=== PATIENT | male | born 1960 | race Caucasian/White ===

== ENCOUNTER 2018-01-09 20:55 | Emergency (ER) | payer OTHER ==
[~2018-01-09] VITALS: Ht 177.8 cm; Wt 113.4 kg
[~2018-01-09 20:55] MED LIST: CYCLOBENZAPRINE5 MG PO; HYDROCODONE-AP1 EAC6 PO; LISINOPRIL20 MG PO; POLYMYXIN B/TMP10 ML OP; PRILOSEC 10MG C10 MG PO
[2018-01-09] MEDS ORDERED: ALEVE220 MG PO (21:04)
[2018-01-09 21:46] LABS: ABSOLUTE EOSINOPHILS 0.1 thou/uL (0.0-0.7); ABSOLUTE MONOCYTES 0.8 thou/uL (0.0-1.2); ABSOLUTE NEUTROPHILS 5.8 thou/uL (1.6-8.1); BASOPHILS 0.5 %; EOSINOPHILS 1.5 %; HEMATOCRIT 44.3 % (42.0-52.0); MCH 30.1 pg (26.0-34.0); MCHC 33.8 g/dL (28.0-37.0); MONOCYTES 9.1 %; MPV 7.6 fl. (7.2-11.1); NUCLEATED RBCS 0 /100WBC; PLATELET COUNT* 267 thou/uL (150-400); POLYS 65.9 %; RBC 4.98 mil/uL (4.50-6.00); RDW-CV 14.1 % (10.5-14.5); WBC 8.7 thou/uL (4.0-11.0)
[2018-01-09 21:49] LABS: CREATININE 1.5 mg/dL (0.6-1.3)
[2018-01-09 21:54] LABS: ALBUMIN 3.9 g/dL (3.4-5.0); TOTAL BILIRUBIN 0.5 mg/dL (<0.1-1.0); TOTAL PROTEIN 7.1 g/dL (6.4-8.2)
[2018-01-09 22:06] LABS: URINE BILIRUBIN NEGATIVE (Negative); URINE BLOOD 2+ (Negative); URINE CLARITY CLEAR; URINE COLOR YELLOW; URINE GLUCOSE-RANDOM NEGATIVE (Negative); URINE KETONES NEGATIVE (Negative); URINE LEUKOCYTES NEGATIVE (Negative); URINE NITRITE NEGATIVE (Negative); URINE PROTEIN NEGATIVE (Negative); URINE SPECIFIC GRAVITY 1.025 (1.005-1.030)
[2018-01-09 22:15] LABS: URINE WBC 0-5 Rare /HPF (0-5)
[2018-01-09 22:16] LABS: BACTERIA 1-9 Few /HPF (None Seen); CRYSTALS None Seen /LPF (None Seen); FINE GRANULAR CASTS 0-3 Few /LPF (None Seen); HYALINE CASTS 0-3 Few /LPF (None Seen); URINE RBC 3-10 Few /HPF (0-2)
[2018-01-09 22:17] LABS: SQUAMOUS 0-3 Few /LPF (0-3)
[2018-01-09] MEDS ORDERED: PERCOCET PO (22:42)
[2018-01-09] MEDS ORDERED: FLOMAX0.4 MG PO (22:42)
[2018-01-09 23:06] VITALS: BP 130/80
== END 2018-01-09 23:15 | disposition home or self-care (01) ==
LOC: M.ERS 20:55
PROVIDERS: Nurse Practitioner Family
DX: N20.1 Calculus of ureter (principal); N13.30 Unspecified hydronephrosis; R11.2 Nausea with vomiting, unspecified